=== PATIENT | female | born 1995 | race Caucasian/White ===

== ENCOUNTER 2019-04-06 05:20 | Inpatient (IN) | payer MEDICAID, OTHER ==
[2019-04-06] MEDS ORDERED: Citric Acid/Sodium Citrate Solution 30 ML Cup PO ONE (05:24)
[2019-04-06] MEDS ORDERED: Sodium Chloride 0.9% 10 ML SDV IV PRN (05:24)
[2019-04-06] MEDS ORDERED: Clindamycin Phosphate in D5W 900 MG in Premix Bag 1 BAG IV ONE ×2 (05:24)
[2019-04-06] MEDS ORDERED: Sodium Chloride 0.9% 10 ML Syringe FLUSH PRN (05:24)
[2019-04-06] MEDS ORDERED: Sodium Chloride 0.9% 2.5 ML Syringe FLUSH PRN (05:24)
[2019-04-06] MEDS ORDERED: Lactated Ringers 1,000 ML IV SCH ×2 (05:30→09:00)
[2019-04-06] MEDS ORDERED: Oxytocin/0.9 % Sodium Chloride 30 UNIT/500 ML BAG IV SCH (05:30)
[2019-04-06] MEDS ORDERED: Morphine PF 10 MG/10 ML SDV ONE (07:07)
[2019-04-06] MEDS ORDERED: Oxytocin 10 Units/1 ML SDV ONE (07:08)
[2019-04-06] MEDS ORDERED: Phenylephrine 1% 10 MG/ML SDV ONE (07:13)
[2019-04-06] MEDS ORDERED: Octyl 2-Cyanoacrylate 1 Tube ONE (07:36)
[2019-04-06] MEDS ORDERED: Ondansetron 4 MG/2 ML SDV ONE (07:43)
[2019-04-06] MEDS ORDERED: Nalbuphine 10 MG/1 ML Vial IVPUSH PRN (07:58)
[2019-04-06] MEDS ORDERED: Acetaminophen/oxyCODONE 325-5 MG Tab PO PRN ×3 (07:58→08:53)
--- NOTE | 2019-04-06 07:58 | PCM.PREANE ---
Preanesthetic Assessment - Anesthesia/Transfusion/Family Hx Anesthesia History: Prior Anesthesia Without Reaction (prior scheduled c section with spinal) Family History of Anesthesia Reaction: No Transfusion History: No Prior Transfusion(s) - Review of Systems General: No Symptoms Pulmonary: No Symptoms Cardiovascular: No Symptoms Gastrointestinal: No Symptoms Neurological: No Symptoms Other: Reports: None - Physical Assessment NPO Status Date: 04/05/19 Height: 5 ft 3 in Weight: 61.689 kg ASA Class: 2 Mental Status: Alert & Oriented x3 Airway Class: Mallampati = 2 Dentition: Reports: Normal Dentition ROM/Head Extension: Full Lungs: Clear to Auscultation, Normal Respiratory Effort Cardiovascular: Regular Rate, Regular Rhythm - Lab Values: Laboratory Last Values WBC 7.05 K/uL (4.0-11.0) 04/06/19 05:55 RBC 3.88 M/uL (4.30-5.90) L 04/06/19 05:55 Hgb 11.9 g/dL (12.0-16.0) L 04/06/19 05:55 Hct 35.1 % (36.0-46.0) L 04/06/19 05:55 MCV 90.5 fL (80.0-98.0) 04/06/19 05:55 MCH 30.7 pg (27.0-32.0) 04/06/19 05:55 MCHC 33.9 g/dL (31.0-37.0) 04/06/19 05:55 RDW Std Deviation 45.1 fl (28.0-62.0) 04/06/19 05:55 RDW Coeff of Ritesh 14 % (11.0-15.0) 04/06/19 05:55 Plt Count 194 K/uL (150-400) 04/06/19 05:55 MPV 10.60 fL (7.40-12.00) 04/06/19 05:55 Nucleated RBC % 0.0 /100WBC 04/06/19 05:55 Nucleated RBCs # 0 K/uL 04/06/19 05:55 Blood Type O POSITIVE 04/06/19 05:55 Antibody Screen NEGATIVE 04/06/19 05:55 - Allergies Allergies/Adverse Reactions: Allergies Allergy/AdvReac Type Severity Reaction Status Date / Time latex Allergy Redness Verified 04/01/19 08:35 Penicillins Allergy Hives Verified 04/01/19 08:35 - Blood Blood Available: No - Anesthesia Plan Pre-Op Medication Ordered: None - Acknowledgements Anesthesia Type Planned: Spinal Pt an Appropriate Candidate for the Planned Anesthesia: Yes Alternatives and Risks of Anesthesia Discussed w Pt/Guardian: Yes Pt/Guardian Understands and Agrees with Anesthesia Plan: Yes Additional Comments: PMH: term gestation, seasonal allergies PLAN: spinal with intrathecal morphine PreAnesthesia Questionnaire HEENT History: Reports: Allergic Rhinitis Other HEENT History: wears glasses/contacts Cardiovascular History: Reports: None Respiratory History: Reports: None Gastrointestinal History: Reports: Other (See Below) Other Gastrointestinal History: heartburn during Genitourinary History: Reports: None CARE TAKER History: Reports: Musculoskeletal History: Reports: None Neurological History: Reports: None Psychiatric History: Reports: Autism, Other (See Below) Other Psychiatric History: high functioning autism Endocrine/Metabolic History: Reports: None Hematologic History: Reports: Anemia Immunologic History: Reports: None Oncologic (Cancer) History: Reports: None Dermatologic History: Reports: Eczema - Infectious Disease History Infectious Disease History: Reports: None - Past Surgical History Head Surgeries/Procedures: Reports: None HEENT Surgical History: Reports: Adenoidectomy, Tonsillectomy Cardiovascular Surgical History: Reports: None Respiratory Surgical History: Reports: None GI Surgical History: Reports: None Female Surgical History: Reports: Section Endocrine Surgical History: Reports: None Neurological Surgical History: Reports: None Musculoskeletal Surgical History: Reports: None Oncologic Surgical History: Reports: None Dermatological Surgical History: Reports: None - SUBSTANCE USE Smoking Status *Q: Never Smoker Second Hand Smoke Exposure: No Recreational Drug Use History: No - HOME MEDS Home Medications: Home Meds Calcium Carbonate [Tums] 1 tab.chew CHEW ASDIRECTED PRN 04/01/19 [History] Cetirizine HCl [Aller-Porter] 1 tab PO DAILY 04/01/19 [History] Ferrous Sulfate [Iron] 1 tab PO DAILY 04/01/19 [History] PNV95/Ferrous Fumarate/FA [ Vitamin Tablet] 1 tab PO DAILY 04/01/19 [ History] - CURRENT (IN HOUSE) MEDS Current Meds: Current Medications Lactated Ringer's (Ringers, Lactated) 1,000 mls @ 500 mls/hr IV BOLUS DAR Last Admin: 04/06/19 07:04 Dose: 500 mls/hr Oxytocin/Sodium Chloride (Oxytocin 30 Unit/500 Ml-Ns) 30 unit in 500 mls @ 250 mls/hr IV TITRATE DAR Gentamicin Sulfate 300 mg/ (Sodium Chloride) 107.5 mls @ 215 mls/hr IV 0800 ONE Stop: 04/06/19 08:29 Sodium Chloride (Saline Flush) 10 ml FLUSH ASDIRECTED PRN PRN Reason: Keep Vein Open Sodium Chloride (Saline Flush) 2.5 ml FLUSH ASDIRECTED PRN PRN Reason: Keep Vein Open Sodium Chloride (Normal Saline) 10 ml IV ASDIRECTED PRN PRN Reason: IV Use Discontinued Medications Citric Acid/Sodium Citrate (Bicitra Solution) 30 ml PO ONETIME ONE Stop: 04/06/19 05:25 Last Admin: 04/06/19 07:29 Dose: 30 ml Gentamicin Sulfate (Gentamicin) 0 mg IV Q12H ONE Stop: 04/06/19 08:01 Clindamycin Phosphate 900 mg/ (Premix) 50 mls @ 100 mls/hr IV ASDIRECTED ONE Stop: 04/06/19 05:53 Last Admin: 04/06/19 07:26 Dose: 100 mls/hr Morphine Sulfate (Duramorph Pf) Confirm Administered Dose 10 mg .ROUTE .STK-MED ONE Stop: 04/06/19 07:08 Octyl Cyanoacrylate (Dermabond Advance) Confirm Administered Dose 1 applic .ROUTE .STK-MED ONE Stop: 04/06/19 07:37 Ondansetron HCl (Zofran) Confirm Administered Dose 4 mg .ROUTE .STK-MED ONE Stop: 04/06/19 07:44 Oxytocin (Pitocin) Confirm Administered Dose 10 unit .ROUTE .STK-MED ONE Stop: 04/06/19 07:09 Phenylephrine HCl (Norman-Synephrine) Confirm Administered Dose 10 mg .ROUTE .STK- MED ONE Stop: 04/06/19 07:14
[2019-04-06] MEDS ORDERED: Gentamicin 300 MG in Sodium Chloride 0.9% 100 ML IV ONE (08:00)
[2019-04-06] MEDS ORDERED: Gentamicin Pediatric 10 MG/ML 2 ML SDV IV ONE (08:00)
[2019-04-06] MEDS ORDERED: Bisacodyl 10 MG Supp RECTAL PRN (08:53)
[2019-04-06] MEDS ORDERED: Lanolin 100% Cream 7 GM Tube TOP PRN (08:53)
[2019-04-06] MEDS ORDERED: Ibuprofen 800 MG Tab PO PRN (08:53)
[2019-04-06] MEDS ORDERED: Ondansetron 4 MG/2 ML SDV IVPUSH PRN (08:53)
[2019-04-06] MEDS ORDERED: diphenhydrAMINE 50 MG/ML SDV IVPUSH PRN (08:53)
--- NOTE | 2019-04-06 09:07 | PCM.OPNOTE ---
- General Post-Op/Procedure Note Date of Surgery/Procedure: 04/06/19 Operative Procedure(s): repeat low transverse Findings: liveborn mal 8 weight 3290 grams, normal pelvis Pre Op Diagnosis: 39 weeks, previous Post-Op Diagnosis: Same Anesthesia Technique: Spinal Primary Surgeon: Trisha Roldan Anesthesia Provider: Fortino [employer] Specialty Technician: Stacie Vargas Pathology: none Output, Urine Amount: 200 EBL in mLs: 400 Complications: None Known Condition: Good
[2019-04-06] MEDS: Ketorolac 30 MG/ML SDV IVPUSH SCH ×3 (09:25→21:04)
--- NOTE | 2019-04-06 09:50 | PCM.POSTAN ---
POST ANESTHESIA ASSESSMENT - MENTAL STATUS Mental Status: Alert, Oriented - VITAL SIGNS Vital Signs: Last Vital Signs Temp 36.1 C 04/06/19 09:05 Pulse 61 04/06/19 09:35 Resp 2 L 04/06/19 09:35 BP 97/65 04/06/19 09:35 Pulse Ox 99 04/06/19 09:35 - RESPIRATORY Respiratory Status: Respiratory Rate WNL, Airway Patent, O2 Saturation Stable - CARDIOVASCULAR CV Status: Pulse Rate WNL, Blood Pressure Stable - GASTROINTESTINAL GI Status: No Symptoms - PAIN Pain Score: 0 - POST OP HYDRATION Hydration Status: Adequate & Stable - OBSERVATIONS Free Text/Narrative:: patient comfrtable at this time, no signs or symptoms of anesthesia related problems at this time
--- NOTE | 2019-04-06 10:20 | OR ---
SURGEON: Trisha Roldan M.D. DATE OF PROCEDURE: 04/06/2019 PREOPERATIVE DIAGNOSIS: 39-week intrauterine , prior delivery, desires repeat C- section. POSTOPERATIVE DIAGNOSIS: 39-week intrauterine , prior delivery, desires repeat C- section. PROCEDURE: Repeat low-transverse section. PRIMARY SURGEON: Trisha Roldan M.D. ANESTHESIA: Spinal. ESTIMATED BLOOD LOSS: Less than 400 mL. URINE OUTPUT: 200 mL. FINDINGS: Liveborn male. score of 8 and 9, weighing 3290 g. Normal-appearing uterus, tubes, and ovaries. COMPLICATIONS: None known. DISPOSITION: Stable to recovery. BRIEF HISTORY: This is a 23-year-old female, G2, P1-0-0-0 with one prior delivery with subsequent demise due to anomalies. She presents at 39 weeks for a repeat delivery with risks discussed including bleeding, infection, injury to bowel, bladder, blood vessels or other organs, risk of thromboembolic event, and risk of anesthesia. Understanding all these risks, she does desire to proceed. DESCRIPTION OF PROCEDURE: With the patient in left tilt position, under adequate spinal analgesia, the abdomen was prepped with chlorhexidine and draped in usual fashion for abdominal surgery. SCDs were in place. Ivan catheter had been placed, and she had received gentamicin and clindamycin IV for prophylaxis. After an appropriate time-out was held, documentation of adequate analgesia was performed. The prior cicatrix was excised and the incision was carried through the subcutaneous tissue to the fascia, which was scored transversely in the midline. The fascial incision was extended laterally using curved Lawson scissors. The fascia was elevated from the underlying rectus muscle using sharp and blunt dissection. The rectus muscles were bluntly in the midline and this incision was extended using blunt dissection. The Edgardo O retractor was placed. The visceroperitoneum over the lower uterine segment was incised. A transverse curvilinear incision was made over the lower uterine segment with a scalpel and the incision was extended. The amniotic membranes were ruptured. The head was delivered via the uterine incision with fundal pressure with subsequent delivery of the 's shoulders and body without any difficulty. The was bulb suctioned by mouth, and after one minute, the cord was doubly clamped and cut and the was handed to the nurse in attendance at delivery. The infant is a liveborn male. score was 8 and 9, weighing 3290 g. Cord blood was collected for cord ABGs as well as routine cord blood sampling. Pitocin was initiated after delivery of the to assist with uterine contraction, and the placenta was removed by manual extraction and cleaned with a wet laparotomy tape. The uterine incision was closed with a running lock suture of 0 Polysorb followed by an imbricating layer of 0 Polysorb followed by three ceflla-os-udndh sutures of 0 Polysorb for complete hemostasis. The pericolic gutters and posterior cul-de-sac were cleaned. The uterine incision was inspected and was completely hemostatic. The rectus muscle and peritoneum were loosely approximated in the midline using a running mattress suture of 0 Polysorb. After the Edgardo O retractor was removed and the posterior aspect of the fascia was inspected, there was no bleeding and the fascial incision was closed with a running suture of 0 Polysorb. Subcutaneous tissues were irrigated and any areas of bleeding that were noted were cauterized and the deep subcutaneous tissue was closed with a running suture of 0 Polysorb and the skin was closed with a running subcuticular suture of 3-0 Monocryl followed by Dermabond. Final sponge, needle, and instrument counts were reported as correct. There were no complications. The patient was transferred to recovery in good condition. SONJA LAWRENCE /[id number]
[2019-04-06] MEDS: Docusate Sodium 100 MG Cap PO SCH ×2 (15:15→21:04)
[2019-04-06] MEDS ORDERED: Measles, Mumps & Rubella Vaccine 0.5 ML SDV SUBCUT ONE (15:31)
[2019-04-07] MEDS: Ketorolac 30 MG/ML SDV IVPUSH SCH ×2 (04:00→09:27)
[2019-04-07] MEDS ORDERED: Simethicone 80 MG Tab.Chew PO PRN (08:03)
--- NOTE | 2019-04-07 08:03 | PCM.PNPP ---
- General Info Date of Service: 04/07/19 Admission Dx/Problem (Free Text): Patient without complaints. Ivan removed at 0630, has not attempted voiding yet. Functional Status: Reports: Pain Controlled, Tolerating Diet - Review of Systems General: Reports: No Symptoms HEENT: Reports: No Symptoms Pulmonary: Reports: No Symptoms Cardiovascular: Reports: No Symptoms Gastrointestinal: Reports: No Symptoms Genitourinary: Reports: No Symptoms Musculoskeletal: Reports: No Symptoms Skin: Reports: No Symptoms Neurological: Reports: No Symptoms Psychiatric: Reports: No Symptoms - Patient Data Vital Signs - Most Recent: Last Vital Signs Temp 36.7 C 04/07/19 03:30 Pulse 84 04/07/19 03:30 Resp 16 04/07/19 06:00 BP 101/55 L 04/07/19 03:30 Pulse Ox 98 04/07/19 06:00 Weight - Most Recent: 61.689 kg I&O - Last 24 Hours: Intake & Output 04/06/19 04/07/19 04/07/19 22:59 06:59 14:59 Intake Total 606 Output Total 100 1200 Balance 506 -1200 Lab Results - Last 24 Hours: Laboratory Results - last 24 hr 04/06/19 04/07/19 Range/Units 08:22 05:48 Hgb 10.0 L (12.0-16.0) g/dL Hct 30.8 L (36.0-46.0) % Cord ABG pH 7.227 (7.18-7.38) Cord ABG Base Excess -5 (-10--2) Cord VBG pH 7.290 (7.25-7.45) Cord VBG Base Excess -6 (-10--2) Med Orders - Current: Current Medications Bisacodyl (Dulcolax) 10 mg RECTAL ONETIME PRN PRN Reason: Constipation Diphenhydramine HCl (Benadryl) 25 mg IVPUSH Q6H PRN PRN Reason: Itching or Nausea Docusate Sodium (Colace) 100 mg PO BID DAR Last Admin: 04/06/19 21:04 Dose: 100 mg Emollient Ointment (Lansinoh Hpa) 0 gm TOP ASDIRECTED PRN PRN Reason: Sore Nipples Lactated Ringer's (Ringers, Lactated) 1,000 mls @ 125 mls/hr IV ASDIRECTED [facility] Last Admin: 04/06/19 10:48 Dose: 125 mls/hr Ibuprofen (Motrin) 800 mg PO Q8H PRN PRN Reason: mild pain or fever Ketorolac Tromethamine (Toradol) 30 mg IVPUSH Q6H [facility] Stop: 04/07/19 09:01 Last Admin: 04/07/19 04:00 Dose: 30 mg Ondansetron HCl (Zofran) 4 mg IVPUSH Q4H PRN PRN Reason: Nausea/Vomiting Last Admin: 04/06/19 08:30 Dose: 4 mg Oxycodone/Acetaminophen (Percocet 325-5 Mg) 1 tab PO ONETIME PRN PRN Reason: Pain (moderate 4-6) Oxycodone/Acetaminophen (Percocet 325-5 Mg) 1 tab PO Q4H PRN PRN Reason: Pain (moderate 4-6) Oxycodone/Acetaminophen (Percocet 325-5 Mg) 2 tab PO Q4H PRN PRN Reason: Pain (moderate 4-6) Discontinued Medications Citric Acid/Sodium Citrate (Bicitra Solution) 30 ml PO ONETIME ONE Stop: 04/06/19 05:25 Last Admin: 04/06/19 07:29 Dose: 30 ml Gentamicin Sulfate (Gentamicin) 0 mg IV Q12H ONE Stop: 04/06/19 08:01 Clindamycin Phosphate 900 mg/ (Premix) 50 mls @ 100 mls/hr IV ASDIRECTED ONE Stop: 04/06/19 05:53 Last Admin: 04/06/19 07:26 Dose: 100 mls/hr Lactated Ringer's (Ringers, Lactated) 1,000 mls @ 500 mls/hr IV BOLUS [facility] Last Admin: 04/06/19 07:04 Dose: 500 mls/hr Oxytocin/Sodium Chloride (Oxytocin 30 Unit/500 Ml-Ns) 30 unit in 500 mls @ 250 mls/hr IV TITRATE [facility] Gentamicin Sulfate 300 mg/ (Sodium Chloride) 107.5 mls @ 215 mls/hr IV 0800 ONE Stop: 04/06/19 08:29 Last Admin: 04/06/19 20:01 Dose: Not Given Measles/Mumps/Rubella Vaccine Live (M-M-R Ii Vaccine) 0.5 ml SUBCUT .ONCE ONE Stop: 04/06/19 15:32 Morphine Sulfate (Duramorph Pf) Confirm Administered Dose 10 mg .ROUTE .STK-MED ONE Stop: 04/06/19 07:08 Nalbuphine HCl (Nubain) 2.5 mg IVPUSH Q3H PRN PRN Reason: Pruritis Stop: 04/07/19 07:59 Octyl Cyanoacrylate (Dermabond Advance) Confirm Administered Dose 1 applic .ROUTE .STK-MED ONE Stop: 04/06/19 07:37 Last Admin: 04/06/19 20:01 Dose: Not Given Ondansetron HCl (Zofran) Confirm Administered Dose 4 mg .ROUTE .STK-MED ONE Stop: 04/06/19 07:44 Oxytocin (Pitocin) Confirm Administered Dose 10 unit .ROUTE .STK-MED ONE Stop: 04/06/19 07:09 Phenylephrine HCl (Norman-Synephrine) Confirm Administered Dose 10 mg .ROUTE .STK- MED ONE Stop: 04/06/19 07:14 Sodium Chloride (Saline Flush) 10 ml FLUSH ASDIRECTED PRN PRN Reason: Keep Vein Open Sodium Chloride (Saline Flush) 2.5 ml FLUSH ASDIRECTED PRN PRN Reason: Keep Vein Open Sodium Chloride (Normal Saline) 10 ml IV ASDIRECTED PRN PRN Reason: IV Use - Interaction Infant Disposition, : to Nursery Feeding: Attempted ; Nursed Fair/Poor Support Person: Mother - Recovery Exam Fundal Tone: Firm Fundal Level: 2 Fingerbreadths Below Umbilicus Fundal Placement: Midline Lochia Amount: Scant, Small Lochia Color: Rubra/Red Episiotomy/Laceration: None Bladder Status: Nonpalpable Urinary Elimination: Other (see below) (has not yet attempted voiding) - Exam General: Alert, Oriented, No Acute Distress Neck: Supple Lungs: Clear to Auscultation, Normal Respiratory Effort Cardiovascular: Regular Rate, Regular Rhythm GI/Abdominal Exam: Soft, Non-Tender Extremities: Normal Inspection, No Pedal Edema Skin: Warm, Dry, Intact Wound/Incisions: Healing Well Neurological: No New Focal Deficit Psy/Mental Status: Alert, Normal Affect, Normal Mood - Problem List & Annotations (1) delivery delivered SNOMED Code(s): 589389011 Code(s): O82 - ENCOUNTER FOR DELIVERY WITHOUT INDICATION Status: Acute Current Visit: Yes - Problem List Review Problem List Initiated/Reviewed/Updated: Yes - Assessment Assessment:: 23yo POD#1 s/p repeat low-transverse section - Plan Plan:: Straight cath if no voiding by 6 hours after catheter removal. Encourage ambulation today. Simethicone for gas pain as needed. Plan for discharge on POD# 2.
[2019-04-07] MEDS: Docusate Sodium 100 MG Cap PO SCH (09:27)
--- NOTE | 2019-04-07 15:58 | PCM48HPAN ---
Post Anesthesia Note - EVALUATION WITHIN 48HRS OF ANESTHETIC Vital Signs in Normal Range: Yes Patient Participated in Evaluation: Yes Respiratory Function Stable: Yes Airway Patent: Yes Cardiovascular Function Stable: Yes Hydration Status Stable: Yes Pain Control Satisfactory: Yes Nausea and Vomiting Control Satisfactory: Yes Mental Status Recovered: Yes Vital Signs: Last Vital Signs Temp 36.7 C 04/07/19 03:30 Pulse 90 04/07/19 08:00 Resp 16 04/07/19 08:00 BP 99/69 04/07/19 08:00 Pulse Ox 99 04/07/19 08:00
[2019-04-08] MEDS: Docusate Sodium 100 MG Cap PO SCH ×2 (01:16→09:10)
--- NOTE | 2019-04-08 08:37 | PCM.PNPP ---
- General Info Date of Service: 04/08/19 Admission Dx/Problem (Free Text): Pain controlled. Voiding and passing flatus. Ambulating in room without dizziness. well. Functional Status: Reports: Pain Controlled, Tolerating Diet, Ambulating, Urinating - Review of Systems General: Reports: No Symptoms HEENT: Reports: No Symptoms Pulmonary: Reports: No Symptoms Cardiovascular: Reports: No Symptoms Gastrointestinal: Reports: No Symptoms Genitourinary: Reports: No Symptoms Musculoskeletal: Reports: No Symptoms Skin: Reports: No Symptoms Neurological: Reports: No Symptoms Psychiatric: Reports: No Symptoms - Patient Data Vital Signs - Most Recent: Last Vital Signs Temp 36.3 C 04/08/19 08:08 Pulse 82 04/08/19 08:08 Resp 20 04/08/19 08:08 BP 121/76 04/08/19 08:08 Pulse Ox 97 04/08/19 08:08 Weight - Most Recent: 61.689 kg Lab Results - Last 24 Hours: Laboratory Results - last 24 hr 04/06/19 Range/Units 05:55 RPR Non Reactive (NonRea<1:1) Med Orders - Current: Current Medications Bisacodyl (Dulcolax) 10 mg RECTAL ONETIME PRN PRN Reason: Constipation Diphenhydramine HCl (Benadryl) 25 mg IVPUSH Q6H PRN PRN Reason: Itching or Nausea Docusate Sodium (Colace) 100 mg PO BID [facility] Last Admin: 04/08/19 01:16 Dose: 100 mg Emollient Ointment (Lansinoh Hpa) 0 gm TOP ASDIRECTED PRN PRN Reason: Sore Nipples Lactated Ringer's (Ringers, Lactated) 1,000 mls @ 125 mls/hr IV ASDIRECTED [facility] Last Admin: 04/06/19 10:48 Dose: 125 mls/hr Ibuprofen (Motrin) 800 mg PO Q8H PRN PRN Reason: mild pain or fever Last Admin: 04/08/19 01:16 Dose: 800 mg Ondansetron HCl (Zofran) 4 mg IVPUSH Q4H PRN PRN Reason: Nausea/Vomiting Last Admin: 04/06/19 08:30 Dose: 4 mg Oxycodone/Acetaminophen (Percocet 325-5 Mg) 1 tab PO ONETIME PRN PRN Reason: Pain (moderate 4-6) Oxycodone/Acetaminophen (Percocet 325-5 Mg) 1 tab PO Q4H PRN PRN Reason: Pain (moderate 4-6) Last Admin: 04/08/19 01:16 Dose: 1 tab Oxycodone/Acetaminophen (Percocet 325-5 Mg) 2 tab PO Q4H PRN PRN Reason: Pain (moderate 4-6) Last Admin: 04/07/19 15:10 Dose: 2 tab Simethicone (Simethicone) 80 mg PO Q4H PRN PRN Reason: Gas Discontinued Medications Citric Acid/Sodium Citrate (Bicitra Solution) 30 ml PO ONETIME ONE Stop: 04/06/19 05:25 Last Admin: 04/06/19 07:29 Dose: 30 ml Gentamicin Sulfate (Gentamicin) 0 mg IV Q12H ONE Stop: 04/06/19 08:01 Clindamycin Phosphate 900 mg/ (Premix) 50 mls @ 100 mls/hr IV ASDIRECTED ONE Stop: 04/06/19 05:53 Last Admin: 04/06/19 07:26 Dose: 100 mls/hr Lactated Ringer's (Ringers, Lactated) 1,000 mls @ 500 mls/hr IV BOLUS DAR Last Admin: 04/06/19 07:04 Dose: 500 mls/hr Oxytocin/Sodium Chloride (Oxytocin 30 Unit/500 Ml-Ns) 30 unit in 500 mls @ 250 mls/hr IV TITRATE DAR Gentamicin Sulfate 300 mg/ (Sodium Chloride) 107.5 mls @ 215 mls/hr IV 0800 ONE Stop: 04/06/19 08:29 Last Admin: 04/06/19 20:01 Dose: Not Given Ketorolac Tromethamine (Toradol) 30 mg IVPUSH Q6H [facility] Stop: 04/07/19 09:01 Last Admin: 04/07/19 09:27 Dose: 30 mg Measles/Mumps/Rubella Vaccine Live (M-M-R Ii Vaccine) 0.5 ml SUBCUT .ONCE ONE Stop: 04/06/19 15:32 Morphine Sulfate (Duramorph Pf) Confirm Administered Dose 10 mg .ROUTE .STK-MED ONE Stop: 04/06/19 07:08 Nalbuphine HCl (Nubain) 2.5 mg IVPUSH Q3H PRN PRN Reason: Pruritis Stop: 04/07/19 07:59 Octyl Cyanoacrylate (Dermabond Advance) Confirm Administered Dose 1 applic .ROUTE .STK-MED ONE Stop: 04/06/19 07:37 Last Admin: 04/06/19 20:01 Dose: Not Given Ondansetron HCl (Zofran) Confirm Administered Dose 4 mg .ROUTE .STK-MED ONE Stop: 04/06/19 07:44 Oxytocin (Pitocin) Confirm Administered Dose 10 unit .ROUTE .STK-MED ONE Stop: 04/06/19 07:09 Phenylephrine HCl (Norman-Synephrine) Confirm Administered Dose 10 mg .ROUTE .STK- MED ONE Stop: 04/06/19 07:14 Sodium Chloride (Saline Flush) 10 ml FLUSH ASDIRECTED PRN PRN Reason: Keep Vein Open Sodium Chloride (Saline Flush) 2.5 ml FLUSH ASDIRECTED PRN PRN Reason: Keep Vein Open Sodium Chloride (Normal Saline) 10 ml IV ASDIRECTED PRN PRN Reason: IV Use - Infant Interaction Disposition, : in Room with Family Infant Interaction: Holding Infant Feeding: Attempted ; Nursed Fair/Poor Support Person: Mother - Recovery Exam Fundal Tone: Firm Fundal Level: 1 Fingerbreadths Below Umbilicus Fundal Placement: Midline Lochia Amount: Scant Lochia Color: Rubra/Red Episiotomy/Laceration: None Bladder Status: Voiding Urinary Elimination: Voided - Exam General: Alert, Oriented HEENT: Pupils Equal Neck: Supple Lungs: Clear to Auscultation, Normal Respiratory Effort Cardiovascular: Regular Rate, Regular Rhythm GI/Abdominal Exam: Soft, Non-Tender, No Distention Extremities: Normal Inspection, No Pedal Edema Skin: Warm, Dry, Intact Wound/Incisions: Healing Well Neurological: No New Focal Deficit Psy/Mental Status: Alert, Normal Affect, Normal Mood - Problem List & Annotations (1) delivery delivered SNOMED Code(s): 013672290 Code(s): O82 - ENCOUNTER FOR DELIVERY WITHOUT INDICATION Status: Acute Current Visit: Yes - Problem List Review Problem List Initiated/Reviewed/Updated: Yes - My Orders Last 24 Hours: My Active Orders 04/07/19 08:03 Simethicone 80 mg PO Q4H PRN 04/08/19 08:35 Ready for Discharge [RC] PER UNIT ROUTINE - Assessment Assessment:: 23yo POD#2 s/p repeat low-transverse section - Plan Plan:: Patient desires discharge home today. Reviewed discharge instructions, warning signs/symptoms. Prescription for Percocet and Ibuprofen sent to patient's pharmacy. Follow-up in 2 weeks for incision check.
== END 2019-04-08 10:50 | disposition home or self-care (01) | DRG 788 ==
LOC: MW.OB 05:20
PROVIDERS: ADMIT Obstetrics & Gynecology; ATTEND Obstetrics & Gynecology
PROC: 10D00Z1 Extraction of Products of Conception, Low, Open Approach (ICD-10-PCS; principal; 2019-04-06)
PROC: 3E0234Z Introduction of Serum, Toxoid and Vaccine into Muscle, Percutaneous Approach (ICD-10-PCS; 2019-04-08)
DX: O34.211 Maternal care for low transverse scar from previous cesarean delivery (principal); Z3A.39 39 weeks gestation of pregnancy; Z37.0 Single live birth; Z23 Encounter for immunization
CPT/HCPCS: 01961; 36415; 59025; 82803; 85014; 85018; 85027; 86593; 86850; 86900; 86901; 90707; A9270-GY; J1885; J2270; J2370; J2405; J2590; J3490; J7120

== ENCOUNTER 2019-04-13 14:15 | Emergency (ER) | payer OTHER ==
--- NOTE | 2019-04-13 15:22 | EDM.PDOC ---
ED HPI GENERAL MEDICAL PROBLEM - General Chief Complaint: Skin Complaint Stated Complaint: CSECTION SCAR INFECTION Time Seen by Provider: 04/13/19 15:11 Source of Information: Reports: Patient History Limitations: Reports: No Limitations - History of Present Illness INITIAL COMMENTS - FREE TEXT/NARRATIVE: History of present illness: []Patient status post postop day 7 with 5 days of wound erythema and crusting of the wound edges. She denies any drainage and is concerned the wound is opening. She denies any increased pain, fevers, abdominal pain or foul discharge. patient is Breast-feeding. Review of systems: As per history of present illness and below otherwise all systems reviewed and negative. Past medical history: As per history of present illness and as reviewed below otherwise noncontributory. Surgical history: As per history of present illness and as reviewed below otherwise noncontributory. Social history: No reported history of drug or alcohol abuse. Family history: As per history of present illness and as reviewed below otherwise noncontributory. Physical exam: General: Well developed, well nourished in NAD HEENT: Atraumatic, normocephalic, pupils reactive, negative for conjunctival pallor or scleral icterus, mucous membranes moist, throat clear, neck supple, nontender, trachea midline. Lungs: Clear to auscultation, breath sounds equal bilaterally, chest nontender. Heart: S1S2, regular, negative for clicks, rubs, or JVD. Abdomen: Pfannenstiel incision with erythema surrounding approximately 4 cm past incision, there is yellow crusting on the incision itself there is no purulent drainage, fluctuance or dehiscence. NABS, Soft, nondistended, nontender. Negative for masses or hepatosplenomegaly. Negative for costovertebral tenderness. Pelvis: Stable nontender. Genitourinary: Deferred. Rectal: Deferred. Extremities: Atraumatic, negative for cords or calf pain. Neurovascular unremarkable. Neuro: Awake, alert, oriented. Cranial nerves II through XII unremarkable. Cerebellum unremarkable. Motor and sensory unremarkable throughout. Exam nonfocal. Skin:warm and dry Diagnostics: Afebrile Therapeutics: none ED Course: Stable Impression: Post op Cellulitis Prescriptions: Clindamycin Plan: Follow up with OB Definitive disposition and diagnosis as appropriate pending reevaluation and review of above. - Related Data Allergies Allergy/AdvReac Type Severity Reaction Status Date / Time latex Allergy Redness Verified 04/13/19 14:42 Penicillins Allergy Hives Verified 04/13/19 14:42 Home Meds: Home Meds Calcium Carbonate [Tums] 1 tab.chew CHEW ASDIRECTED PRN 04/01/19 [History] Cetirizine HCl [Aller-Porter] 1 tab PO DAILY 04/01/19 [History] Ferrous Sulfate [Iron] 1 tab PO DAILY 04/01/19 [History] PNV95/Ferrous Fumarate/FA [ Vitamin Tablet] 1 tab PO DAILY 04/01/19 [ History] Ibuprofen 800 mg PO Q8HR PRN 10 Days #30 tablet 04/08/19 [Rx] oxyCODONE HCl/Acetaminophen [Percocet 5-325 mg Tablet] 1 - 2 each PO Q6HR PRN 10 Days #20 tablet 04/08/19 [Rx] Clindamycin HCl 300 mg PO TID #30 capsule 04/13/19 [Rx] Past Medical History HEENT History: Reports: Allergic Rhinitis Other HEENT History: wears glasses/contacts Cardiovascular History: Reports: None Respiratory History: Reports: None Gastrointestinal History: Reports: Other (See Below) Other Gastrointestinal History: heartburn during Genitourinary History: Reports: None [employer] History: Reports: Musculoskeletal History: Reports: None Neurological History: Reports: None Psychiatric History: Reports: Autism, Other (See Below) Other Psychiatric History: high functioning autism Endocrine/Metabolic History: Reports: None Hematologic History: Reports: Anemia Immunologic History: Reports: None Oncologic (Cancer) History: Reports: None Dermatologic History: Reports: Eczema - Infectious Disease History Infectious Disease History: Reports: None - Past Surgical History Head Surgeries/Procedures: Reports: None HEENT Surgical History: Reports: Adenoidectomy, Tonsillectomy Cardiovascular Surgical History: Reports: None Respiratory Surgical History: Reports: None GI Surgical History: Reports: None Female Surgical History: Reports: Section Endocrine Surgical History: Reports: None Neurological Surgical History: Reports: None Musculoskeletal Surgical History: Reports: None Oncologic Surgical History: Reports: None Dermatological Surgical History: Reports: None Social & Family History - Family History Family Medical History: Noncontributory - Tobacco Use Smoking Status *Q: Never Smoker Second Hand Smoke Exposure: No - Caffeine Use Caffeine Use: Reports: None Other Caffeine Use: twice a day - Recreational Drug Use Recreational Drug Use: No ED ROS GENERAL - Review of Systems Review Of Systems: See Below ED EXAM, SKIN/RASH Exam: See Below Course - Vital Signs Last Recorded V/S: Last Vital Signs Temp 97 F 04/13/19 14:54 Pulse 77 04/13/19 14:54 Resp 16 04/13/19 14:54 BP 146/92 H 04/13/19 14:54 Pulse Ox 95 04/13/19 14:54 Departure - Departure Time of Disposition: 15:20 Disposition: Home, Self-Care 01 Condition: Good Clinical Impression: Postoperative cellulitis of surgical wound - Discharge Information *PRESCRIPTION DRUG MONITORING PROGRAM REVIEWED*: No *COPY OF PRESCRIPTION DRUG MONITORING REPORT IN PATIENT CHIDI: No Prescriptions: Clindamycin HCl 300 mg PO TID #30 capsule Referrals: Taz Willis MD [Primary Care Provider] - Additional Instructions: The following information is given to patients seen in the emergency department who are being discharged to home. This information is to outline your options for follow-up care. We provide all patients seen in our emergency department with a follow-up referral. The need for follow-up, as well as the timing and circumstances, are variable depending upon the specifics of your emergency department visit. If you don't have a primary care physician on staff, we will provide you with a referral. We always advise you to contact your personal physician following an emergency department visit to inform them of the circumstance of the visit and for follow-up with them and/or the need for any referrals to a consulting specialist. The emergency department will also refer you to a specialist when appropriate. This referral assures that you have the opportunity for follow-up care with a specialist. All of these measure are taken in an effort to provide you with optimal care, which includes your follow-up. Under all circumstances we always encourage you to contact your private physician who remains a resource for coordinating your care. When calling for follow-up care, please make the office aware that this follow-up is from your recent emergency room visit. If for any reason you are refused follow-up, please contact the [facility] Emergency Department at and asked to speak to the emergency department charge nurse. Take meds as directed, follow up with your primary care physician, return to ER if symptoms worsen or change. [facility] [address] [place] [id number]
== END 2019-04-13 15:40 | disposition home or self-care (01) ==
LOC: MW.ED 14:15
DX: O86.00 Infection of obstetric surgical wound, unspecified (principal); L03.311 Cellulitis of abdominal wall; O90.81 Anemia of the puerperium; Z88.0 Allergy status to penicillin; Z91.040 Latex allergy status; Z79.899 Other long term (current) drug therapy
CPT/HCPCS: 99283